=== PATIENT | female | born 1975 | race Caucasian/White ===

== ENCOUNTER 2020-07-06 19:34 | Emergency (ER) | payer MEDICAID ==
[~2020-07-06] VITALS: Ht 162.6 cm; Wt 68.0 kg
[2020-07-06 21:53] LABS: BASOPHILS % 0.5 % (0.0-2.0); EOSINOPHILS % 0.2 % (0.0-5.0); HEMATOCRIT. 36.8 % (36.0-48.0); HEMOGLOBIN. 12.6 g/dL (12.0-16.0); LYMPHOCYTES % 10.7 % (20.0-50.0); MEAN CORPUSCULAR HEMOGLOBIN 29.4 pg (28.0-32.0); MEAN CORPUSCULAR VOLUME 86.2 fL (81.0-99.0); MEAN PLATELET VOLUME 8.7 fl (7.4-10.4); NEUTROPHILS % 82.6 % (40.0-76.0); PLATELET 148 x1000/uL (130-400); RED BLOOD CELL COUNT 4.27 mill/uL (4.2-5.4); RED CELL DISTRIBUTION WIDTH 13.5 % (11.6-14.6)
[2020-07-06 22:00] LABS: CHLORIDE 109 mEq/L (98-107)
[2020-07-06 22:22] LABS: B-HCG QUANTITATIVE 6500 mIU/mL (<3)
[2020-07-07 00:21] LABS: CLARITY URINE TURBID (CLEAR); COLOR URINE RED (YELLOW); KETONES URINE 2+ (NEGATIVE); LEUKOCYTE ESTERASE URINE 2+ (NEGATIVE); NITRITE URINE POSITIVE (NEGATIVE); OCCULT BLOOD URINE 2+ (NEGATIVE); PROTEIN URINE 2+ (NEGATIVE); SPECIFIC GRAVITY URINE 1.031 (1.005-1.030); UROBILINOGEN URINE 0.2 E.U./dL (0.2-1.0)
[2020-07-07] MEDS ORDERED: ACETAMINOPHEN 325MG TABLET PO ONE (02:45)
[2020-07-07 04:00] VITALS: BP 113/73
== END 2020-07-07 04:35 | disposition home or self-care (01) ==
LOC: ER 19:34
DX: O03.9 Complete or unspecified spontaneous abortion without complication (principal); Z3A.09 9 weeks gestation of pregnancy; O16.1 Unspecified maternal hypertension, first trimester
CPT/HCPCS: 36415; 76801; 80053; 81003; 84702; 85025; 86850; 86900; 88305; 93005; 99285